=== PATIENT | male | born 1985 | race Caucasian/White ===

== ENCOUNTER 2017-01-31 14:10 | Emergency (ER) | payer SELFPAY ==
[~2017-01-31] VITALS: Ht 180.3 cm; Wt 58.0 kg
[~2017-01-31 14:10] MED LIST: Z.0.NO CURRENT MEDS
[2017-01-31 14:12] VITALS: BP 148/86; PULSE 76; RESP 20; TEMP 98.4; O2SAT 100
--- NOTE | 2017-01-31 14:17 | PD ---
Physical Exam Time Seen by Provider: 14:14 Narrative 31yo M sent here for "wellness check" from [facility]. Last ETOH use 17- 20 days. Denies illicit drug use. Denies SI or HI. Says he's going to [facility] for "mental health." Patient seen in triage. VS reviewed. Awaiting bed placement. Data Data Last Documented VS Vital Signs Date Time Temp Pulse Resp B/P (MAP) Pulse Ox O2 Delivery O2 Flow Rate FiO2 01/31/17 14:12 98.4 76 20 148/86 (106) 100 Room Air MDM Supervised Visit with JENNIFER: Jessica Luna Jan 31, 2017 14:17
== END 2017-01-31 15:30 | disposition left against medical advice (07) ==
LOC: NETRI 14:10
DX: Z53.21 Procedure and treatment not carried out due to patient leaving prior to being seen by health care provider (principal)
CPT/HCPCS: 99281